=== PATIENT | female | born 1965 | race Caucasian/White ===

== ENCOUNTER 2018-01-18 22:41 | Emergency (ER) | payer MEDICAID ==
[~2018-01-18] VITALS: Ht 157.5 cm; Wt 103.0 kg
[2018-01-19] MEDS ORDERED: Norco 10-325 T1 EACH PO (02:04)
[2018-01-19] MEDS ORDERED: crutches (02:06)
== END 2018-01-19 02:23 | disposition home or self-care (01) ==
LOC: ER 22:41
DX: S92.512A Displaced fracture of proximal phalanx of left lesser toe(s), initial encounter for closed fracture (principal); Z87.891 Personal history of nicotine dependence; W22.8XXA Striking against or struck by other objects, initial encounter
CPT/HCPCS: 73630; 99283-25

== ENCOUNTER 2018-10-18 20:51 | Emergency (ER) | payer SELFPAY ==
[~2018-10-18] VITALS: Ht 157.5 cm; Wt 102.5 kg
[~2018-10-18 20:51] MED LIST: Norco 10-325 T1 EACH PO; crutches
[2018-10-18 22:01] LABS: BASOPHILS ABSOLUTE AUTO 0.03 K/mm3 (0.00-0.23); BASOPHILS PERCENT AUTO 1 % (0-2); EOSINOPHILS ABSOLUTE AUTO 0.18 K/mm3 (0.00-0.68); EOSINOPHILS PERCENT AUTO 3 % (0-6); Hematocrit 40.2 % (33.0-51.0); Hemoglobin 13.1 g/dL (11.5-16.0); IMMATURE GRAN ABSOLUTE AUTO 0.01 K/mm3 (0.00-0.10); IMMATURE GRAN PERCENT AUTO 0 % (0-1); LYMPHOCYTES ABSOLUTE AUTO 2.55 K/mm3 (0.84-5.20); LYMPHOCYTES PERCENT AUTO 42 % (21-46); MONOCYTES ABSOLUTE AUTO 0.33 K/mm3 (0.16-1.47); MONOCYTES PERCENT AUTO 5 % (4-13); Mean Corpuscular HGB 29.3 pg (26.0-34.0); Mean Corpuscular HGB Conc 32.6 g/dL (31.5-36.5); Mean Corpuscular Volume 90 fL (80-100); NEUTROPHILS ABSOLUTE AUTO 3.02 K/mm3 (1.96-9.15); NEUTROPHILS PERCENT AUTO 49 % (41-73); Platelet Count 266 K/mm3 (150-400); RDW Coefficient Variation 13.5 % (11.7-14.2); RDW Standard Deviation 44.8 fL (35.1-46.3); Red Blood Cell Count 4.47 M/mm3 (3.80-5.20); White Blood Cell Count 6.12 K/mm3 (4.00-11.30)
[2018-10-18 22:18] LABS: Alanine Aminotransfer (ALT/SGP 29 U/L (12-78); Albumin, Blood 4.1 g/dL (3.4-5.0); Albumin/Globulin Ratio 1.1 (0.8-1.8); Alk Phos 59 U/L (50-136); Anion Gap 7 mmol/L (6-16); Aspartate Aminotrans (AST/SGOT 14 U/L (12-37); Bilirubin, Total 0.2 mg/dL (0.1-1.0); Blood Urea Nitrogen 21 mg/dL (8-24); CO2, Blood 26 mmol/L (21-32); Calcium, Blood 8.9 mg/dL (8.5-10.1); Chloride, Blood 108 mmol/L (98-108); Creatinine, Blood 0.58 mg/dL (0.40-1.00); Globulin, Blood 3.7 g/dL (2.2-4.0); Glomerular Filtration Rate >60 (60-); Glucose, Blood 114 mg/dL (70-99); Potassium, Blood 4.1 mmol/L (3.5-5.5); Sodium, Blood 141 mmol/L (136-145); Total Protein, Blood 7.8 g/dL (6.4-8.2)
== END 2018-10-19 00:04 | disposition home or self-care (01) ==
LOC: ER 20:51
PROVIDERS: Emergency Medicine
DX: R42 Dizziness and giddiness (principal); J45.909 Unspecified asthma, uncomplicated; Z87.891 Personal history of nicotine dependence; Z88.1 Allergy status to other antibiotic agents
CPT/HCPCS: 36415; 80053; 85025; 93005; 93010; 99284-25

== ENCOUNTER → 2020-03-23 | Outpatient (CLI) | payer SELFPAY ==
[2020-03-23 18:58] LABS: BASOPHILS ABSOLUTE AUTO 0.03 K/mm3 (0.00-0.23); BASOPHILS PERCENT AUTO 1 % (0-2); EOSINOPHILS ABSOLUTE AUTO 0.18 K/mm3 (0.00-0.68); EOSINOPHILS PERCENT AUTO 3 % (0-6); Hemoglobin 13.1 g/dL (11.5-16.0); IMMATURE GRAN ABSOLUTE AUTO 0.01 K/mm3 (0.00-0.10); IMMATURE GRAN PERCENT AUTO 0 % (0-1); LYMPHOCYTES ABSOLUTE AUTO 2.53 K/mm3 (0.84-5.20); LYMPHOCYTES PERCENT AUTO 47 % (21-46); MONOCYTES ABSOLUTE AUTO 0.28 K/mm3 (0.16-1.47); MONOCYTES PERCENT AUTO 5 % (4-13); Mean Corpuscular HGB 29.6 pg (26.0-34.0); Mean Corpuscular HGB Conc 33.6 g/dL (31.5-36.5); Mean Corpuscular Volume 88 fL (80-100); Mean Platelet Volume 9.8 fL (9.1-12.4); NEUTROPHILS PERCENT AUTO 44 % (41-73); Platelet Count 248 K/mm3 (150-400); RDW Coefficient Variation 13.5 % (11.7-14.2); RDW Standard Deviation 43.7 fL (35.1-46.3); Red Blood Cell Count 4.42 M/mm3 (3.80-5.20); White Blood Cell Count 5.43 K/mm3 (4.00-11.30)
[2020-03-23 19:09] LABS: Alanine Aminotransfer (ALT/SGP 29 U/L (12-78); Albumin, Blood 4.1 g/dL (3.4-5.0); Albumin/Globulin Ratio 1.1 (0.8-1.8); Alk Phos 64 U/L (40-126); Anion Gap 9 mmol/L (6-16); Aspartate Aminotrans (AST/SGOT 12 U/L (12-37); Bilirubin, Total 0.1 mg/dL (0.1-1.0); Blood Urea Nitrogen 19 mg/dL (8-24); Bun/Creatinine Ratio 32.2 (12.0-20.0); CO2, Blood 27 mmol/L (21-32); Calcium, Blood 9.1 mg/dL (8.5-10.1); Chloride, Blood 104 mmol/L (98-108); Creatinine, Blood 0.59 mg/dL (0.40-1.00); Globulin, Blood 3.7 g/dL (2.2-4.0); Glomerular Filtration Rate >60 (60-); Glucose, Blood 114 mg/dL (70-99); Potassium, Blood 3.7 mmol/L (3.5-5.5); Sodium, Blood 140 mmol/L (136-145); Total Protein, Blood 7.8 g/dL (6.4-8.2)
[2020-03-23 19:11] LABS: Troponin I <0.017 ng/mL (0.000-0.040)
== END ==
LOC: LAB SHORT 18:52 → LAB EV 18:52
PROVIDERS: Physician Assistant
DX: R00.2 Palpitations (principal)
CPT/HCPCS: 80053; 84484; 85025

== ENCOUNTER 2020-08-21 19:36 | Inpatient (IN) | payer SELFPAY ==
[~2020-08-21] VITALS: Ht 157.5 cm; Wt 98.2 kg
[2020-08-21] MEDS ORDERED: AMLO5 PO (20:56)
[2020-08-21] MEDS ORDERED: LISI5 PO (20:57)
[2020-08-21] MEDS ORDERED: FLUTICASONE-SA1 EAC1 INH (20:57)
[2020-08-21] MEDS ORDERED: ALBU90OI INH (20:57)
[2020-08-21 21:22] LABS: BASOPHILS ABSOLUTE AUTO 0.01 K/mm3 (0.00-0.23); BASOPHILS PERCENT AUTO 0 % (0-2); EOSINOPHILS ABSOLUTE AUTO 0.01 K/mm3 (0.00-0.68); EOSINOPHILS PERCENT AUTO 0 % (0-6); Hematocrit 39.1 % (33.0-51.0); Hemoglobin 12.8 g/dL (11.5-16.0); IMMATURE GRAN ABSOLUTE AUTO 0.05 K/mm3 (0.00-0.10); IMMATURE GRAN PERCENT AUTO 1 % (0-1); LYMPHOCYTES ABSOLUTE AUTO 1.28 K/mm3 (0.84-5.20); LYMPHOCYTES PERCENT AUTO 18 % (21-46); MONOCYTES PERCENT AUTO 3 % (4-13); Mean Corpuscular HGB Conc 32.7 g/dL (31.5-36.5); Mean Corpuscular Volume 89 fL (80-100); Mean Platelet Volume 9.6 fL (9.1-12.4); NEUTROPHILS ABSOLUTE AUTO 5.39 K/mm3 (1.96-9.15); NEUTROPHILS PERCENT AUTO 78 % (41-73); Platelet Count 291 K/mm3 (150-400); RDW Coefficient Variation 13.4 % (11.7-14.2); RDW Standard Deviation 44.4 fL (35.1-46.3); Red Blood Cell Count 4.41 M/mm3 (3.80-5.20); White Blood Cell Count 6.94 K/mm3 (4.00-11.30)
[2020-08-21 21:41] LABS: Alanine Aminotransfer (ALT/SGP 50 U/L (12-78); Albumin, Blood 2.9 g/dL (3.4-5.0); Albumin/Globulin Ratio 0.6 (0.8-1.8); Alk Phos 51 U/L (50-136); Anion Gap 7 mmol/L (6-16); Aspartate Aminotrans (AST/SGOT 35 U/L (12-37); Bilirubin, Total 0.3 mg/dL (0.1-1.0); Blood Urea Nitrogen 5 mg/dL (8-24); Bun/Creatinine Ratio 7.7 (12.0-20.0); CO2, Blood 30 mmol/L (21-32); Calcium, Blood 8.7 mg/dL (8.5-10.1); Chloride, Blood 101 mmol/L (98-108); Creatinine, Blood 0.65 mg/dL (0.40-1.00); Globulin, Blood 4.9 g/dL (2.2-4.0); Glomerular Filtration Rate >60 (60-); Glucose, Blood 134 mg/dL (70-99); Potassium, Blood 3.9 mmol/L (3.5-5.5); Sodium, Blood 138 mmol/L (136-145); Total Protein, Blood 7.8 g/dL (6.4-8.2)
[2020-08-21 22:19] LABS: Source, Urine Voided
[2020-08-21 22:23] LABS: Bilirubin, Urine Neg (Neg); Blood, Urine Neg (Neg); Glucose Qualitative, Urine Neg (Neg); Ketones, Urine Neg (Neg); Leukocyte Esterase, Urine Neg (Neg); Nitrite, Urine Neg (Neg); Protein, Urine Neg (Neg); Specific Gravity, Urine 1.015 (1.003-1.022); Urobilinogen, Urine NORM (Normal); pH, Urine 6.5 (5.0-8.0)
[2020-08-21 22:26] LABS: Appearance, Urine Clear (Clear); Color, Urine Yellow (P-Yellow)
[2020-08-22 05:20] LABS: BASOPHILS ABSOLUTE AUTO 0.01 K/mm3 (0.00-0.23); BASOPHILS PERCENT AUTO 0 % (0-2); EOSINOPHILS PERCENT AUTO 0 % (0-6); Hematocrit 35.6 % (33.0-51.0); Hemoglobin 11.6 g/dL (11.5-16.0); IMMATURE GRAN ABSOLUTE AUTO 0.04 K/mm3 (0.00-0.10); IMMATURE GRAN PERCENT AUTO 1 % (0-1); LYMPHOCYTES ABSOLUTE AUTO 0.78 K/mm3 (0.84-5.20); LYMPHOCYTES PERCENT AUTO 11 % (21-46); MONOCYTES ABSOLUTE AUTO 0.11 K/mm3 (0.16-1.47); MONOCYTES PERCENT AUTO 2 % (4-13); Mean Corpuscular HGB 29.6 pg (26.0-34.0); Mean Corpuscular HGB Conc 32.6 g/dL (31.5-36.5); Mean Corpuscular Volume 91 fL (80-100); Mean Platelet Volume 9.6 fL (9.1-12.4); NEUTROPHILS PERCENT AUTO 86 % (41-73); Platelet Count 251 K/mm3 (150-400); RDW Coefficient Variation 13.6 % (11.7-14.2); RDW Standard Deviation 45.8 fL (35.1-46.3); Red Blood Cell Count 3.92 M/mm3 (3.80-5.20); White Blood Cell Count 6.84 K/mm3 (4.00-11.30)
[2020-08-22 05:56] LABS: Alanine Aminotransfer (ALT/SGP 44 U/L (12-78); Albumin, Blood 2.5 g/dL (3.4-5.0); Albumin/Globulin Ratio 0.5 (0.8-1.8); Alk Phos 50 U/L (50-136); Anion Gap 7 mmol/L (6-16); Aspartate Aminotrans (AST/SGOT 32 U/L (12-37); Bilirubin, Total 0.3 mg/dL (0.1-1.0); Blood Urea Nitrogen 6 mg/dL (8-24); CO2, Blood 25 mmol/L (21-32); Calcium, Blood 8.3 mg/dL (8.5-10.1); Chloride, Blood 106 mmol/L (98-108); Globulin, Blood 4.6 g/dL (2.2-4.0); Glomerular Filtration Rate >60 (60-); Glucose, Blood 171 mg/dL (70-99); Potassium, Blood 4.4 mmol/L (3.5-5.5); Sodium, Blood 138 mmol/L (136-145); Total Protein, Blood 7.1 g/dL (6.4-8.2)
--- NOTE | 2020-08-22 07:10 | NUR ---
REPORT FROM ALEXI JAEMS. PT RESTING IN BED. APPEARS TO BE SLEEPING. VSS.
--- NOTE | 2020-08-22 07:32 | NUR ---
SHIFT SUMMARY PT IS ADMITTED TO ICU FOR PNE R/T COVID. PT'S DAUGHTER IS ALSO SICK AND TESTED POSITIVE, BUT SHE STATES THAT HER SPOUSE HAS BEEN AWAY FROM HOME FOR WORK AND HAS NOT BEEN EXPOSED. PT IS CASIANO WHEN TRANSFERRING TO BEDSIDE COMMODE. SPO2 92% OR GREATER MAINTAINED WITH O2 BY NC AT 4LPM. SHE ALSO REPORTS PAIN IN HER LUNGS WHEN COUGHING. SHE IS DROWSY AND FALLS ASLEEP EASILY WHEN UNDISTURBED. WILL CONTINUE TO MONITOR AND REPORT TO ONCOMING SHIFT.
--- NOTE | 2020-08-22 09:00 | NUR ---
Assumed care of pt at 0900 from Sarina JAMES. Pt A&O x 4. Answers questions. Follows commands. Verbalizes needs. Pleasant and cooperative with care. Pt out of bed to use bedside commode, weak, but otherwise tolerates well. Requires one person assistance to use commode. SpO2 remains 90% or greater with rest and mobility. Pt currently on 4 LPM NC. Does not wear O2 at home. SR per monitor. BP stable. Bed in lowest position. Call light in reach. Pt denies need at this time.
--- NOTE | 2020-08-22 11:00 | NUR ---
Dr Rajan in to see patient. States that pt is acceptable for PCU status.
--- NOTE | 2020-08-22 14:50 | NUR ---
ADMIT:08/21/20 DISCHARGE: DX: COVID-19 CC: [place] CALL: RESIDENCE: Home with spouse CAREGIVER: Derek Gerber, Spouse / Partner, Daughter Mario [phone] DX: COVID-19, vertigo DME: none CCM: none HOME HEALTH: none SUMMARY: Admit: 08/21/20 08/22/20- per chart review with Dr. Rajan, pt's status has been changed from ICU to PCU. She will not be d/c home at this time. Pt has been put on droplet precautions. Currently on 4L O2, noted CASIANO with assisted movements with toileting, ect. PT and OT have been ordered for pt but have not been in to work with pt at this time. -vivi
--- NOTE | 2020-08-22 14:54 | NUR ---
UPDATE No acute changes. Pt currently in bed, sleeping, at this time. Pt OOB several times to use commode. Continues to tolerate activity without drop in SpO2, however generally weak and deconditioned.
--- NOTE | 2020-08-22 17:03 | NUR ---
SUMMARY Pt's oxygen per nasal cannula has successfully been titrated down from 4 LPM to 3 LPM. Sp02 is currently 94%. Pt had two liquid bowel movements this shift. Up to bedside commode for each void of urine or stool. Pt reported "lung pain" this afternoon, worse with coughing. Fentanyl given. Pt then reported nausea shortly after fentanyl provided. Zofran given. No vomiting noted. It was at this time that OT came by to see pt. Plan to skip treatment today. Bed in lowest position. Call light in reach. Will continue to closely monitor until care handoff and bedside report with oncoming RN.
--- NOTE | 2020-08-22 19:23 | NUR ---
CARE ASSUMED PT AWAKE, ALEART TO VOISE, FOLLOWS. ON 4 L N/C, VITALS STABLE. PIV: S.L. CONTINUE ASSESSMENT AND CARE.
--- NOTE | 2020-08-22 20:48 | NUR ---
DECREASED SAT UP TO BSC ON 3 L N/C, PT HAS INCREASED SOB, RR 30, INCREASEING COUGHING WITH ACTIVITY. INCREASED 02 TO 4 L N/C TO RECOVER BACK IN BED. INCREASE O2 DEMAND, SOB COUGHING AND LUNG PAIN WITH ANY ACTIVITY.
--- NOTE | 2020-08-23 00:45 | NUR ---
ASSEAAMENT PT UP TO BSC, WITH INCREASED SOB, SATS 86% REQUIRING 8-10 L N/C WHEN UP TO BSC. BACK TO BED, 02 RETUREND TO 4 L N/C. SAT 95%. PAIN MEDS GIVEN PER MAR FOR ONGOING HEADACHES.
--- NOTE | 2020-08-23 06:25 | NUR ---
ONGOING ASSESSMENT UP TO BSC, VERY SOB, UNABLE TO WIPE HERSELF, FEELING INCREASING WEAKNESS AND REQUIRING INCREASED O2 TO GET UP TO BSC. DESATS 85% WITH ACTIVITY. CONSIDER CHANGING PT TO BEDREST. CONTINUE ASSESSMENT AND CARE TILL REPORT OFF TO ONCOMING SHIFT RN.
--- NOTE | 2020-08-23 09:21 | NUR ---
Assumed care of pt at 0700 from Tegan JAMES. Pt A&O x 4. Answers questions. Follows commands. Verbalizes needs. Pleasant and cooperative with care but overall has flat affect and seems withdrawn. This AM, pt states that she needs to have a bowel movement. Pt placed on bedpan, but after approx 5 minutes, pt states she does not think she can have a bowel movement in a bedpan. Pt assisted to use bedside commode. Weak, but otherwise tolerated well. Bedbath provided while pt on commode. Pt then transferred to chair, agreeable to sitting up for a while. No drop in SpO2 noted with activity. Pt on 4 LPM NC. Changed to high flow and humidified NC by Avis PAK. SR per monitor. BP stable. Pt currently in recliner with call light in reach. Pt looking forward to working with physical therapy.
--- NOTE | 2020-08-23 14:48 | NUR ---
08/23/20- Per chart review, pt worked with PT today, she has a drop in O2 saturation with ambulation but it returns with rest. Pt's baseline is that she is independent. Pt lives with family, and 3 kids. She does provide caregiver services for her . Assessment shows that pt has 14 steps to access her bedroom but there are railings. PT's recommendation is for home with home health and FWW along with part-time caregiver support. Dr. Rajan has no d/c plan at this time. -chrisw
--- NOTE | 2020-08-23 15:51 | NUR ---
Patient is sitting on a chair and alert. Patient tells me about her virus experience and how it has gone through most of her family. Patient has 6 kids. Patient then talks at length about her spiritual journey. I normalize patient's experience and provide recitation of scripture, pastoral behavioral school counselors and prayer. Patient responds well and shows signs of being encouraged in her sunny. I will continue to remain available to patient and family.
--- NOTE | 2020-08-23 18:47 | NUR ---
SUMMARY No acute changes t/o shift. Pt OOB for majority of shift, sitting in chair. Pt uses commode every two hours, or more frequently. Remains at 4 LPM NC. Rarely desaturates with activity. Tolerated PT/OT well. Pt stated she has rib pain with activity but she did not want to take pain medication. Educated that pain meds have been changes since fentanyl made her sick. SR per monitor. BP stable. Will continue to closely monitor until care handoff and bedside report with oncoming RN.
--- NOTE | 2020-08-23 19:00 | NUR ---
ASSUMED CARE NOTE: ASSUMED CARE OF PT AT 1900, RECEVIED REPORT FROM LIAM JAMES. PT IS ALERT AND ORIENTEDX3, ABLE TO COMMUNICATE NEEDS. PT ON 4L OF O2 VIA HUMITIFED HIGH FLOW, SPO2 ABOVE 90% NO RESP DISTRESS NOTED AT THIS TIME. PT IS NSR WITH HR IN THE 70'S, BP STABLE. PT IS EXPERIENCING SEVERE PRURITUS AFTER DELIVERY OF TORDOL. PT SKIN WAS WASHED, AND LOTION WAS APPLIED, COOL SHEET PROVIDED. BENYDRAL ORDERED. NO RASH PRESENT, HOWEVER PT HAS BEEN SCRATCHING AND ABDOMEN IS BECOMING RED, PT WAS REMINDED TO AVOID SCRATCHING IF POSSIBLE.
--- NOTE | 2020-08-23 23:30 | NUR ---
ASSUMED CARE NOTE: ASSUMED CARE OF PT AT 1900, RECEVIED REPORT FROM ADELAIDA JAMES. PT IS ALERT AND ORIENTEDX2, ABLE TO STATE SOME REMOTE AND RECENT EVENTS. UNABLE TO STATE PLACE, HOWEVER KNOWS SHE IS IN THE HOSPITAL. NO SIGNS/SYMPTOMS OF ETOH WITHDRAW AT THIS TIME. PT IS COOPERATIVE WITH CARE, ABLE TO COMMUNICATE NEEDS. PT IS ON RA WITH SPO2 ABOVE 90% NO RESP DISTRESS NOTED. PT HAS OCCASSIONAL COUGH. PT IN SINUS RYTHYM WITH HR IN THE 90'S, BP STABLE. VOSS IS PATENT, DRAINING TO GRAVITY. BED AT LOWEST LEVEL, CALL LIGHT WITHIN REACH.
--- NOTE | 2020-08-24 05:42 | NUR ---
SHIFT SUMMARY: NO SIGNIFICANT CHANGES T/O SHIFT. PT CONTINUES TO BE ON 4L OF 02 VIA HUMIDIFIED OXYGEN, SPO2 ABOVE 90% BECOMES EXERTED WITH ACTIVITY, SPO2 DROPS TO 88% , PT RECOVERS QUICKLY. PT HAS BEEN BETWEEN SINUS ROLANDO TO SR , HR BETWEEN 55-65. BP STABLE. PT HAS BEEN USING THE BED SIDE TOILET AND COMMODE WITH ONE PERSON MINIMAL ASSISTANCE. PT HAS BEEN ABLE TO REPOSITION SELF IN BED FROM SIDE TO SIDE. PT HAS DENIED ANY PAIN. PRURITUS HAS RESOLVED AFTER 50MG OF BENADRYL WAS GIVEN. WILL CONTINUE TO MONITOR PT UNTIL REPORT IS GIVEN TO ONCOMING SHIFT.
--- NOTE | 2020-08-24 10:56 | NUR ---
Upon patient's request to be served communion, I visit patient and bring the communion elements. I perform the communion service with patient and provide prayer. Patient then explains more fully the depth that communion means to her. Patient states that she is more tired today and so I let her return to her rest. I will continue to remain available to patient and family.
--- NOTE | 2020-08-24 18:00 | NUR ---
SHIFT SUMMARY PT IS ALERT AND ORIENTEDx4. TODAY PT REPORTED FEELING MORE TIRED THAN PREVIOUS DAYS. PT HAS TOLERATED SITTING UP IN CHAIR SINCE LUNCH TIME AND IS ONE PERSON ASSITED TO CHAIR/BSC. NO CHANGES TO O2 MADE TODAY, PT HAS REMAINED ON 4L VIA NC. SPO2 >92%, WITH OCCASSIONAL SHORT DROPS IN SPO2 WITH ACTIVITY. VITALS HAVE REMAINED STABLE. SINUS RHYTHM ON THE MONITOR.
--- NOTE | 2020-08-25 05:23 | NUR ---
SHIFT SUMMARY PT RESTED WELL THROUGH NGIHT - ALERT AND ORIENTED, ABLE TO MAKE NEEDS KNOWN - COOPERATIVE WITH PLAN OF CARE. SATS >96% ON 4LNC, RN WEANED DOWN TO 2LNC, SATS REMAIN 95% AT THIS MOMENT. PT HAS COUGHING FIT WITH ACTIVITY, BUT SATS REMAIN STABLE. TELE - NSR. STAND BY ASSIST TO BSC. VOIDING ADEQUATELY, NO BM. NO SKIN ISSUES. TOLERATING DIET. NO C/O PAIN. VSS. CALL LIGHT WTIHIN REACH, BED IN LOWEST POSITION. WILL CONTINUE TO MONITOR.
--- NOTE | 2020-08-25 09:12 | NUR ---
CARE ASSUMED OF PT AT 0700. PT SBA TO BATHROOM; PT COUGHS AGGRESSIVELY WITH ANY EXERTION. VERY SMALL AMT OF SPUTUM. PT WORKED W PT THIS AM AND IS NOW UP IN CHAIR FOR BREAKFAST. PT WHISPERS AND IS SOB W ANY EXERTION INCLUDING SPEAKING. PT HAS SOME RHONCHI TO LLL, POSSIBLY SOME FINE CRACKLES WELL, CLEAR OTHERWISE. PT C/O RIB PAIN 11/24; TYLENOL GIVEN. PT MAY REQUIRE SOMETHING MORE FOR PAIN, WILL ASK ALSO ABOUT A COUGH SUPPRESSANT. PT SATS AROUND 90-91% ON 2L. PT AFEBRILE, PALE, SLIGHTLY DIAPHORETIC. BP TRENDING DOWN BUT STABLE. HTN MEDS GIVEN THIS AM.
--- NOTE | 2020-08-25 13:05 | NUR ---
DR RANDALL IN TO SEE PT. FULL UPDATE GIVEN. PT NOW MEDICAL FLOOR STATUS NO TELE. LINES REMOVED. PT SBA TO TOILET; TOLERATED WELL.
--- NOTE | 2020-08-25 14:10 | NUR ---
REPORT GIVEN TO CALVIN JAMES. PT TO BE TRANSFUSED TO ROOM 362.
--- NOTE | 2020-08-25 15:21 | NUR ---
TRANSFER PT TRANSFERED UP FROM ICU, PT ORIENTED TO ROOM AND CALL SYSTEM, PT UP TO THE SHOWER AT THIS TIME
--- NOTE | 2020-08-25 17:17 | NUR ---
SUMMARY PT SITTING UP IN BED WATCHING TV, PT HAS BEEN PLEASANT AND COOPERATIVE WITH CARE, UP TO TAKE A SHOWER, O2 TITRATED UP TO 4L WITH ACTIVITY AND BACK DOWN TO 2L NC WHEN PT RESTED, PT COOPERATIVE WITH CARE, USES THE CALL LIGHT APPROPRIATELY, VSS, WILL CONT TO MONITOR
[2020-08-26 05:32] LABS: BASOPHILS ABSOLUTE AUTO 0.02 K/mm3 (0.00-0.23); BASOPHILS PERCENT AUTO 0 % (0-2); EOSINOPHILS ABSOLUTE AUTO 0.08 K/mm3 (0.00-0.68); EOSINOPHILS PERCENT AUTO 1 % (0-6); Hematocrit 39.1 % (33.0-51.0); Hemoglobin 12.8 g/dL (11.5-16.0); IMMATURE GRAN PERCENT AUTO 1 % (0-1); LYMPHOCYTES ABSOLUTE AUTO 2.27 K/mm3 (0.84-5.20); LYMPHOCYTES PERCENT AUTO 31 % (21-46); MONOCYTES ABSOLUTE AUTO 0.41 K/mm3 (0.16-1.47); MONOCYTES PERCENT AUTO 6 % (4-13); Mean Corpuscular HGB Conc 32.7 g/dL (31.5-36.5); Mean Corpuscular Volume 89 fL (80-100); Mean Platelet Volume 9.8 fL (9.1-12.4); NEUTROPHILS ABSOLUTE AUTO 4.54 K/mm3 (1.96-9.15); NEUTROPHILS PERCENT AUTO 61 % (41-73); Platelet Count 385 K/mm3 (150-400); RDW Coefficient Variation 12.7 % (11.7-14.2); RDW Standard Deviation 41.1 fL (35.1-46.3); Red Blood Cell Count 4.41 M/mm3 (3.80-5.20); White Blood Cell Count 7.42 K/mm3 (4.00-11.30)
[2020-08-26 05:57] LABS: Anion Gap 4 mmol/L (6-16); Blood Urea Nitrogen 16 mg/dL (8-24); CO2, Blood 31 mmol/L (21-32); Calcium, Blood 8.9 mg/dL (8.5-10.1); Chloride, Blood 101 mmol/L (98-108); Creatinine, Blood 0.67 mg/dL (0.40-1.00); Glomerular Filtration Rate >60 (60-); Glucose, Blood 127 mg/dL (70-99); Potassium, Blood 4.2 mmol/L (3.5-5.5); Sodium, Blood 136 mmol/L (136-145)
--- NOTE | 2020-08-26 06:32 | NUR ---
SHIFT SUMMARY PT IS A 54 Y/O FEMALE, ADMITTED FOR PNA R/T COVID-19 AND IN ENHANCED ISOLATION. SHE IS A&0 X 4, INDEPENDENT IN THE ROOM. VITAL SIGNS STABLE. O2 SATS > 90% ON 2L OF O2. NO C/O ACUTE PAIN, NAUSEA OR SOB. PT SLEPT WELL THROUGH THE NIGHT. NO ACUTE CHANGES IN PT CONDITION NOTED. WILL CONTINUE TO MONITOR AND TREAT PER EMAR UNTIL HAND OFF TO DAY SHIFT RN.
--- NOTE | 2020-08-26 17:19 | NUR ---
SUMMARY PT SITTING UP IN BED, PT HAS BEEN PLEASANT AND COOPERATIVE WITH CARE T/O THE DAY, INDEPENDENT IN THE ROOM, PT GIVEN AN INCENTIVE SPIROMETER AND INSTRUCTED HOW TO USE IT, PT REMAINS ON 2L NC, DYSPNEA WITH ACTIVITY, RECOVERS WELL, NO COMPLAINTS, VSS, WILL CONT TO MONITOR
[2020-08-27 05:15] LABS: BASOPHILS ABSOLUTE AUTO 0.01 K/mm3 (0.00-0.23); BASOPHILS PERCENT AUTO 0 % (0-2); EOSINOPHILS ABSOLUTE AUTO 0.07 K/mm3 (0.00-0.68); EOSINOPHILS PERCENT AUTO 1 % (0-6); Hematocrit 39.7 % (33.0-51.0); Hemoglobin 13.1 g/dL (11.5-16.0); IMMATURE GRAN ABSOLUTE AUTO 0.18 K/mm3 (0.00-0.10); IMMATURE GRAN PERCENT AUTO 2 % (0-1); LYMPHOCYTES ABSOLUTE AUTO 2.66 K/mm3 (0.84-5.20); LYMPHOCYTES PERCENT AUTO 26 % (21-46); MONOCYTES ABSOLUTE AUTO 0.42 K/mm3 (0.16-1.47); MONOCYTES PERCENT AUTO 4 % (4-13); Mean Corpuscular Volume 88 fL (80-100); Mean Platelet Volume 9.8 fL (9.1-12.4); NEUTROPHILS ABSOLUTE AUTO 6.88 K/mm3 (1.96-9.15); NEUTROPHILS PERCENT AUTO 67 % (41-73); Platelet Count 419 K/mm3 (150-400); RDW Coefficient Variation 12.5 % (11.7-14.2); RDW Standard Deviation 40.5 fL (35.1-46.3); Red Blood Cell Count 4.51 M/mm3 (3.80-5.20); White Blood Cell Count 10.22 K/mm3 (4.00-11.30)
[2020-08-27 05:38] LABS: Anion Gap 7 mmol/L (6-16); Blood Urea Nitrogen 17 mg/dL (8-24); Bun/Creatinine Ratio 27.9 (12.0-20.0); CO2, Blood 28 mmol/L (21-32); Calcium, Blood 9.3 mg/dL (8.5-10.1); Chloride, Blood 100 mmol/L (98-108); Creatinine, Blood 0.61 mg/dL (0.40-1.00); Glomerular Filtration Rate >60 (60-); Glucose, Blood 131 mg/dL (70-99); Potassium, Blood 4.1 mmol/L (3.5-5.5); Sodium, Blood 135 mmol/L (136-145)
--- NOTE | 2020-08-27 06:35 | NUR ---
SHIFT SUMMARY PT IS A 54 Y/O FEMALE, ADMITTED FOR PNA R/T COVID, CURRENTLY IN ENHANCED PRECAUTIONS. SHE IS A&O X 4, INDEPENDENT IN THE ROOM. VITAL SIGNS STABLE, O2 SATS REMAINING > 90% ON 2L OF O2. PT DID REPORT MILD NAUSEA AND STOMACH "FEELING RAW", WELL HER MOUTH AND THROAT "FEELS LIKE THEY ARE FULL OF SAND". PT DENIED THE NEED FOR NAUSEA OR PAIN MEDICATIONS. NO C/O ACUTE SOB. NO OTHER ACUTE CHANGES IN PT CONDITION NOTED DURING THE NIGHT. WILL CONTINUE TO MONITOR AND TREAT PER EMAR UNTIL HAND OFF TO DAY SHIFT RN.
[2020-08-27] MEDS ORDERED: ACET325 PO (13:08)
[2020-08-27] MEDS ORDERED: OMEP20ER PO (13:11)
[2020-08-27] MEDS ORDERED: CLOT10 MT (13:11)
[2020-08-27] MEDS ORDERED: Prednisone10 MG PO (13:14)
[2020-08-27] MEDS ORDERED: ASPI325 PO (13:15)
--- NOTE | 2020-08-27 14:12 | NUR ---
CARE COORDINATION REFERRAL - ADMIT:08/21/20 DISCHARGE: 08/27/20 DX: COVID-19 CC: [facility] CALL: PT AT HOME [phone] RESIDENCE: HOME WITH SPOUSE CAREGIVER: CASTRO DONATO, SPOUSE / PARTNER, DAUGHTER TIA [phone] DX: COVID-19, [facility] DME: NONE CCM: NONE HOME HEALTH: NONE SUMMARY: ADMIT: 08/21/20 08/27/20- PER CHART REVIEW WITH DR. TUCKER, PT WILL BE D/C HOME TODAY. PT HAS NO INSURANCE AND SHE FEELS LIKE SHE WILL NEED OXYGEN AT HOME. DR. TUCKER ORDER HOME O2 EVAL BUT ACCORDING TO THE NOTE, PT'S O2 DOES NOT DROP BELOW 89%. CALLED [facility] AND THEY HAVE A PROGRAM THAT THE PT CAN APPLY FOR O2 AND HAVE IT COVERED BY A JOSSIE SINCE HER ADMISSION IS THE RESULT OF COVID. [facility] ALSO STATED THAT THEY WILL BRING A OBSTETRICS GYN APPLICATION AND PT COULD GET UP TO 70% COST COVERAGE IF THE JOSSIE DOESN'T GO THROUGH. SPOKE WITH PT ABOUT HER OPTIONS AND SHE IS WILLING TO APPLY FOR THE JOSSIE AND OBSTETRICS GYN BUT SHE IS ALSO WILLING TO PAY FOR IT OUT OF POCKET $140/MO. REVIEWED [facility] LETTER WITH PT, SHE ACKNOWLEDGED UNDERSTANDING AND THAT SHE WILL NEED TO MAKE HOSPITAL F/U APPT IN 1 WEEK. . LET HER KNOW THAT [facility] WOULD BE DROPPING OFF AN O2 TANK FOR THE PT TO TAKE HOME. ATTEMPTED TO CONTACT NURSE AND GIVE UPDATE, LMJAKE. -MAGGY
--- NOTE | 2020-08-27 17:16 | NUR ---
PT AOX4 AND COOPERATIVE OF CARE. NO DISTRESS NOTED AND PT INDEPENDENT IN ROOM. PT PT HAD O2 TANK DROPPED OF FOR HER DISCHARGE IN ROOM. ALL PAPERWORK WAS REVIEWED AND EDUCATIONAL MATERIAL SENT WITH PT. PT WAS ESCORTED OUT VIA WHEEL CHAIR WITH TO TRANSPORT.
== END 2020-08-27 17:02 | disposition home or self-care (01) | DRG 871 ==
LOC: ER 19:36 → ICUE 08-22 00:34 → ERHOLD 08-22 00:34 → ICUE 08-22 03:39 → MEDS 08-25 14:29 → ENPENDDIS 08-27 15:16 → MEDS 08-27 17:02
PROVIDERS: Emergency Medicine; Internal Medicine; Physician Assistant; ADMIT Internal Medicine
PROC: 8E0ZXY6 Isolation (ICD-10-PCS; principal; 2020-08-22)
PROC: XW033E5 Introduction of Remdesivir Anti-infective into Peripheral Vein, Percutaneous Approach, New Technology Group 5 (ICD-10-PCS; 2020-08-22)
PROC: 3E0DX3Z Introduction of Anti-inflammatory into Mouth and Pharynx, External Approach (ICD-10-PCS; 2020-08-22)
PROC: 3E0333Z Introduction of Anti-inflammatory into Peripheral Vein, Percutaneous Approach (ICD-10-PCS; 2020-08-22)
DX: A41.89 Other specified sepsis (principal); U07.1 COVID-19; J12.82 Pneumonia due to coronavirus disease 2019; J96.01 Acute respiratory failure with hypoxia; A08.39 Other viral enteritis; J45.901 Unspecified asthma with (acute) exacerbation; I10 Essential (primary) hypertension
CPT/HCPCS: 36415; 71045; 80048; 80053; 81003; 85025; 93005; 93010; 94640; 94760; 94761; 96374; 96375; 97110; 97116; 97161; 97166; 97530; 97535; 99285-25; A9270; J1100; J1650; J1885; J2405; J3010; J7030; J7512